=== PATIENT | male | born 1975 | race Caucasian/White ===

== ENCOUNTER 2023-03-20 05:05 | Inpatient (IN) | payer SELFPAY ==
[2023-03-20] VITALS (10 sets, daily range): BP systolic 130–146; BP diastolic 103–121; PULSE 125–135; RESP 18–30; TEMP 97.9–98.5; O2SAT 100
[~2023-03-20] VITALS: Ht 172.7 cm; Wt 109.9 kg
[2023-03-20] MEDS ORDERED: ONDANSETRON HCL 4MG/2ML INJ IV STA (06:05)
[2023-03-20] MEDS ORDERED: MORPHINE SULFATE 4 MG/ML CPJ (NOT FOR IM USE) IV STA (06:05)
[2023-03-20 06:07] LABS: BASOPHILS % 0.6 % (0.0-2.0); HEMOGLOBIN. 14.2 g/dL (14.0-18.0); LYMPHOCYTES % 15.1 % (20.0-50.0); MEAN CORPUSCULAR HGB CONC 32.2 g/dL (31.0-37.0); MEAN CORPUSCULAR VOLUME 83.8 fL (80.0-94.0); MEAN PLATELET VOLUME 7.8 fl (7.4-10.4); MONOCYTES % 8.6 % (2.0-8.0); NEUTROPHILS % 74.7 % (40.0-76.0); PLATELET 258 x1000/uL (130-400); RED BLOOD CELL COUNT 5.25 mill/uL (4.7-6.1); RED CELL DISTRIBUTION WIDTH 19.5 % (11.6-14.6); WHITE BLOOD COUNT 11.6 x1000/uL (4.5-11.0)
[2023-03-20 06:13] LABS: CHLORIDE 98 mEq/L (98-107); INDEX HEMOLYSI 1 (1-3); INDEX ICTERIC 2 (1-4); INDEX LIPEMIC 1 (1-3); SODIUM 132 mEq/L (136-145)
[2023-03-20 06:20] LABS: INR 1.9; PARTIAL THROMBOPLASTIN TIME 37.4 sec (23.4-31.0); PROTHROMBIN TIME 19.5 sec (9.6-11.0)
[2023-03-20 06:25] LABS: ALANINE AMINOTRANSFERASE 257 IU/L (13-61); ALBUMIN 3.2 g/dL (3.4-5.0); ASPARTATE AMINOTRANSFERASE 251 IU/L (15-37); BILIRUBIN TOTAL 3.4 mg/dL (0.1-1.0); CALCIUM 8.1 mg/dL (8.5-10.1); CARBON DIOXIDE 24 mEq/L (21-32); CREATININE 1.4 mg/dL (0.6-1.3); GLUCOSE 102 mg/dL (70-105); PROTEIN TOTAL 7.3 g/dL (6.0-8.3); UREA NITROGEN BLOOD 18 mg/dL (7-21)
[2023-03-20 06:39] LABS: BG BASE EXCESS -3.1 mmol/L (-2.0-2.0); BG CARBOXYHEMOGLOBIN 1.2 % (0.5-1.5); BG DEOXYHEMOGLOBIN 1.9 % (0.0-5.0); BG FRACTION INSPIRED OXYGEN 28; BG HCO3 ACT 19.1 mmol/L (22.0-26.0); BG METHEMOGLOBIN 0.3 % (0.0-1.5); BG OXYGEN SATURATION 98.1 % (92.0-98.5); BG OXYHEMOGLOBIN 96.6 % (94.0-97.0); BG PCO2 27.3 mmHg (35.0-45.0); BG PH 7.463 (7.350-7.450); BG PO2 100.7 mmHg (75.0-100.0); BG SAMPLE SITE RIGHT RADIAL; BG TOTAL HEMOGLOBIN 14.9 g/dL (12.0-18.0); BG VENT MODE NASAL CANNULA
[2023-03-20 06:47] LABS: TROPONIN I HIGH SENSITIVITY 231 ng/L (<78)
[2023-03-20 06:49] LABS: NT PRO B-TYPE NATRIURETIC PEP 7116 pg/mL (5-125)
[2023-03-20] MEDS ORDERED: FUROSEMIDE 40MG/4ML VIAL IVP ONE (07:00)
[2023-03-20] MEDS ORDERED: AZITHROMYCIN 500MG/250ML 250 ML IV ONE (07:00)
[2023-03-20] MEDS ORDERED: CEFTRIAXONE 1GM PREMIX 50 ML IV ONE (07:00)
[2023-03-20] MEDS ORDERED: DOXYCYCLINE HYCLATE 100 MG/VIAL IV ONE (07:15)
[2023-03-20] MEDS ORDERED: DOXYCYCLINE 100MG in DEXTROSE 5% WATER 100ML IV NR (07:15)
[2023-03-20] MEDS ORDERED: SODIUM CHLORIDE 0.9% 500 ML IV ONE (07:30)
[2023-03-20 07:37] LABS: LACTIC ACID 3.6 mmol/L (0.4-2.0)
[2023-03-20] MEDS ORDERED: HEPARIN 5000 UNITS/ML VIAL IV PRN (08:30)
[2023-03-20] MEDS ORDERED: HEPARIN 25,000 UNITS PREMIX 250 ML IV PRN (08:30)
[2023-03-20] MEDS ORDERED: HEPARIN BOLUS PRN aPTT 37-44 IV (09:45)
[2023-03-20] MEDS ORDERED: HEPARIN BOLUS PRN aPTT <36 IV (09:45)
[2023-03-20] MEDS ORDERED: HEPARIN 25,000 UNITS PREMIX 250 ML IV SCH (10:15)
[2023-03-20] MEDS ORDERED: HEPARIN 5000 UNITS/ML VIAL IV NR (10:15)
[2023-03-20] MEDS ORDERED: ACETAMINOPHEN 325MG TABLET PO PRN ×2 (12:15)
[2023-03-20] MEDS ORDERED: MAGNESIUM/ALUMINUM HYDROXIDE/SIMETHICONE 30ML UDC PO PRN (12:15)
[2023-03-20] MEDS ORDERED: IPRATROPIUM/ALBUTEROL 0.5-3(2.5)MG/3ML NEB NEB PRN (12:15)
[2023-03-20] MEDS: HYDROCODONE/ACETAMINOPHEN 5/325MG TABLET PO PRN ×2 (12:47→18:27)
[2023-03-20] MEDS: CLONIDINE 0.1MG TABLET PO PRN ×3 (12:48→21:58)
[2023-03-20] MEDS: SODIUM CHLORIDE 0.9% 1,000 ML IV SCH ×2 (12:48→22:28)
[2023-03-20] MEDS ORDERED: NALOXONE HCL 0.4MG/ML VIAL IV PRN (14:00)
[2023-03-20 16:07] LABS: HEPATITIS B SURFACE ANTIGEN NEGATIVE
[2023-03-20 16:35] LABS: HEPATITIS C VIR.AB 0.07 INDEXVAL (0.00-0.80)
[2023-03-20] MEDS: DOXYCYCLINE HYCLATE 100MG CAPSULE PO SCH (17:45)
[2023-03-20] MEDS: CEFTRIAXONE 2 G in DEXTROSE 5% WATER 50 ML IV SCH (17:45)
[2023-03-20] MEDS ORDERED: METOPROLOL SUCCINATE 50MG ER TABLET PO SCH (18:45)
[2023-03-20] MEDS ORDERED: DILT240C96 PO (18:59)
[2023-03-20] MEDS ORDERED: CARV6.2548 PO (18:59)
[2023-03-20] MEDS ORDERED: EMPA10TA PO (18:59)
[2023-03-20] MEDS ORDERED: FURO40TA5 PO (18:59)
[2023-03-20] MEDS ORDERED: POTA-185 PO (18:59)
[2023-03-20] MEDS ORDERED: APIX5TAB PO (18:59)
[2023-03-20] MEDS: METOPROLOL TARTRATE 50MG TABLET PO SCH (19:22)
[2023-03-20] MEDS ORDERED: HYDROMORPHONE HCL/PF 2MG/ML CPJ IV NR (19:42)
[2023-03-20 22:28] LABS: BG BASE EXCESS -6.6 mmol/L (-2.0-2.0); BG DEOXYHEMOGLOBIN 3.6 % (0.0-5.0); BG FRACTION INSPIRED OXYGEN 21; BG HCO3 ACT 17.2 mmol/L (22.0-26.0); BG METHEMOGLOBIN 0.3 % (0.0-1.5); BG OXYGEN SATURATION 96.4 % (92.0-98.5); BG OXYHEMOGLOBIN 95.1 % (94.0-97.0); BG PCO2 30.2 mmHg (35.0-45.0); BG PH 7.373 (7.350-7.450); BG PO2 90.2 mmHg (75.0-100.0); BG SAMPLE SITE RIGHT RADIAL; BG TOTAL HEMOGLOBIN 15.2 g/dL (12.0-18.0); BG VENT MODE ROOM AIR
[2023-03-21] VITALS (30 sets, daily range): BP systolic 66–250; BP diastolic 24–134; PULSE 31–202; RESP 0–63; TEMP 97–98.4
[2023-03-21] MEDS ORDERED: GUAIFENESIN 200MG/10ML SUGAR FREE UDC PO PRN (01:15)
[2023-03-21] MEDS ORDERED: ONDANSETRON HCL 4MG/2ML INJ IV PRN (01:15)
[2023-03-21 02:00] LABS: CREATINE KINASE MB FRACTION 5.1 ng/mL (0.5-3.6)
[2023-03-21 09:43] LABS: BG BASE EXCESS -16.2 mmol/L (-2.0-2.0); BG CARBOXYHEMOGLOBIN 1.1 % (0.5-1.5); BG DEOXYHEMOGLOBIN 1.4 % (0.0-5.0); BG FRACTION INSPIRED OXYGEN 33; BG HCO3 ACT 9.7 mmol/L (22.0-26.0); BG OXYGEN SATURATION 98.6 % (92.0-98.5); BG OXYHEMOGLOBIN 97.5 % (94.0-97.0); BG PCO2 24.2 mmHg (35.0-45.0); BG PH 7.219 (7.350-7.450); BG PO2 144.4 mmHg (75.0-100.0); BG SAMPLE SITE RIGHT RADIAL; BG TOTAL HEMOGLOBIN 14.6 g/dL (12.0-18.0); BG VENT MODE NASAL CANNULA
[2023-03-21] MEDS: DOXYCYCLINE HYCLATE 100MG CAPSULE PO SCH (09:57)
[2023-03-21] MEDS: METOPROLOL TARTRATE 50MG TABLET PO SCH (10:23)
[2023-03-21 11:35] LABS: INR 3.3; PARTIAL THROMBOPLASTIN TIME 52.2 sec (23.4-31.0); PROTHROMBIN TIME 32.5 sec (9.6-11.0)
[2023-03-21] MEDS ORDERED: DEXTROSE 50% WATER 50ML SYRINGE IV ONE (14:26)
[2023-03-21] MEDS ORDERED: SODIUM BICARBONATE 8.4% 1 MEQ/ML 50ML SYR IV ONE (14:29)
[2023-03-21] MEDS ORDERED: SODIUM BICARBONATE 8.4% 1 MEQ/ML 50ML SYR IV NR ×2 (14:30→15:45)
[2023-03-21] MEDS ORDERED: DEXTROSE 50% WATER 50ML SYRINGE IV NR (14:30)
[2023-03-21] MEDS ORDERED: NOREPINEPHRINE 8MG/250ML PMX 250 ML IV PRN (15:30)
[2023-03-21 15:37] LABS: BG BASE EXCESS -22.1 mmol/L (-2.0-2.0); BG CARBOXYHEMOGLOBIN 0.7 % (0.5-1.5); BG DEOXYHEMOGLOBIN 0.9 % (0.0-5.0); BG HCO3 ACT 8.7 mmol/L (22.0-26.0); BG METHEMOGLOBIN 0.4 % (0.0-1.5); BG OXYGEN SATURATION 99.1 % (92.0-98.5); BG PCO2 36.4 mmHg (35.0-45.0); BG PH 6.994 (7.350-7.450); BG PO2 204.1 mmHg (75.0-100.0); BG SAMPLE SITE RIGHT RADIAL; BG TOTAL HEMOGLOBIN 14.7 g/dL (12.0-18.0); BG VENT MODE VENT - AC
[2023-03-21] MEDS: SODIUM CHLORIDE 0.9% 1,000 ML IV SCH ×2 (15:48→15:57)
[2023-03-21] MEDS ORDERED: IPRATROPIUM BROMIDE (0.02%) 0.5MG/2.5ML NEB HHN SCH (16:00)
[2023-03-21] MEDS ORDERED: PROPOFOL 10MG/ML 100ML 100 ML IV PRN (16:15)
[2023-03-21 18:00] LABS: BG BASE EXCESS -17.5 mmol/L (-2.0-2.0); BG CARBOXYHEMOGLOBIN 0.3 % (0.5-1.5); BG DEOXYHEMOGLOBIN 67.8 % (0.0-5.0); BG FRACTION INSPIRED OXYGEN 100; BG METHEMOGLOBIN 0.7 % (0.0-1.5); BG OXYGEN SATURATION 31.5 % (92.0-98.5); BG OXYHEMOGLOBIN 31.2 % (94.0-97.0); BG PCO2 69.7 mmHg (35.0-45.0); BG PO2 31.1 mmHg (75.0-100.0); BG SAMPLE SITE RIGHT FEMORAL; BG TOTAL HEMOGLOBIN 11.9 g/dL (12.0-18.0); BG VENT MODE AMBU BAG
[2023-03-21] MEDS: CEFTRIAXONE 2 G in DEXTROSE 5% WATER 50 ML IV SCH (18:22)
[2023-03-21] MEDS ORDERED: SODIUM BICARBONATE 100 MEQ in SODIUM CHLORIDE 0.45% 1,000 ML IV SCH (19:00)
[2023-03-21] MEDS ORDERED: FAMOTIDINE 20MG/2ML VIAL IV SCH (21:00)
== END 2023-03-21 21:20 | DRG 720 ==
LOC: ER 05:05 → 5EST 09:39 → EDBEDREQTM 09:41 → EDBEDREQ 09:41 → 5EST 14:47 → MICUSO 03-21 15:15
PROVIDERS: ADMIT Internal Medicine; ATTEND Internal Medicine
PROC: 5A12012 Performance of Cardiac Output, Single, Manual (ICD-10-PCS; principal; 2023-03-21)
PROC: 5A1935Z Respiratory Ventilation, Less than 24 Consecutive Hours (ICD-10-PCS; 2023-03-21)
PROC: 0BH17EZ Insertion of Endotracheal Airway into Trachea, Via Natural or Artificial Opening (ICD-10-PCS; 2023-03-21)
DX: A41.9 Sepsis, unspecified organism (principal); J96.01 Acute respiratory failure with hypoxia; I26.99 Other pulmonary embolism without acute cor pulmonale; G93.40 Encephalopathy, unspecified; Z20.822 Contact with and (suspected) exposure to COVID-19; E87.4 Mixed disorder of acid-base balance; I11.0 Hypertensive heart disease with heart failure; E16.2 Hypoglycemia, unspecified; E66.9 Obesity, unspecified; I50.9 Heart failure, unspecified; F17.200 Nicotine dependence, unspecified, uncomplicated; Z68.36 Body mass index [BMI] 36.0-36.9, adult; Z78.9 Other specified health status
CPT/HCPCS: 36415; 36600; 71045; 71275; 76700; 80053; 82375; 82550; 82553; 82805; 82962; 83605; 83880; 84145; 84484; 85025; 85379; 86803; 86850; 86900; 87340; 87426; 93005; 93970; 99291; C1893; J0696; J1170; J1644; J1940; J2270; J2405; J3490; J7030; J7040; J7060; Q9967